=== PATIENT | male | born 1985 | race Caucasian/White ===

== ENCOUNTER 2016-05-22 04:37 | Emergency (ER) | payer SELFPAY ==
[~2016-05-22] VITALS: Ht 185.4 cm; Wt 94.8 kg
[2016-05-22 05:38] LABS: Basophils # (auto) 0 uL; Basophils % (auto) 0.3 % (0.0-2.0); Eosinophils # (auto) 0.1 uL; Eosinophils % (auto) 0.6 % (0.0-7.0); Hematocrit 38.1 % (41.0-53.0); Hemoglobin 12.9 g/dL (13.5-17.5); Lymphocytes % (auto) 16.6 % (10.0-50.0); Mean Corpuscular Hemoglobin 30.3 pg (28.0-32.0); Mean Corpuscular Hgb Conc. 33.9 g/dL (32.0-36.0); Mean Corpuscular Volume 89.5 fL (80.0-100.0); Mean Platelet Volume 7.7 fL (7.4-10.4); Monocytes # (auto) 0.6 uL; Monocytes % (auto) 4.8 % (0.0-12.0); Neutrophils # (auto) 9.5 uL; Neutrophils % (auto) 77.7 % (37.0-80.0); Platelet Count (auto) 555 10^3/uL (140-450); Red Cell Distribution Width 12.5 % (11.6-16.0); White Blood Cell 12.2 10^3/uL (4.4-10.8)
[2016-05-22 05:53] LABS: Albumin 3.6 g/dL (3.4-5.0); Anion Gap 9 (5-15); Blood Urea Nitrogen 15 mg/dL (7-18); Calcium 8.1 mg/dL (8.5-10.1); Carbon Dioxide 26 mmol/L (21-32); Chloride 105 mmol/L (98-107); Glucose 117 mg/dL (74-106); Potassium 4.1 mmol/L (3.5-5.1); Sodium 140 mmol/L (136-145)
[2016-05-22 05:56] LABS: Aspartate Aminotransferase 16 U/L (15-37); Magnesium 1.8 mg/dL (1.6-2.6)
[2016-05-22 06:00] LABS: Partial Thromboplastin Time 23.6 sec (22.64-33.71); Prothrombin Time 12.3 sec (9.37-12.3)
[2016-05-22 06:05] LABS: INR 1.19 (0.9-1.15)
[2016-05-22 06:06] LABS: Alkaline Phosphatase 43 U/L (45-117); BUN/Creatinine Ratio 14.9; Bilirubin, Total 0.2 mg/dL (0.2-1.0); GFR African American 112 mL/min; GFR Non-African American 93 mL/min; Total Protein 6.2 g/dL (6.4-8.2)
[2016-05-22 06:50] VITALS: BP 120/77
== END 2016-05-22 07:41 | disposition home or self-care (01) ==
LOC: ER 04:37
DX: J40 Bronchitis, not specified as acute or chronic (principal); S00.81XA Abrasion of other part of head, initial encounter; F17.210 Nicotine dependence, cigarettes, uncomplicated; F12.10 Cannabis abuse, uncomplicated; R00.1 Bradycardia, unspecified; X58.XXXA Exposure to other specified factors, initial encounter; Y93.89 Activity, other specified; Y92.89 Other specified places as the place of occurrence of the external cause; Y99.0 Civilian activity done for income or pay
CPT/HCPCS: 36415; 70450; 71010; 80053; 82962; 83735; 84484; 85025; 85610; 85730; 93005; 99285; J7030